=== PATIENT | male | born 1940 | race Caucasian/White ===

== ENCOUNTER 2023-04-08 06:31 | Emergency (ER) | payer MEDICARE, SELFPAY ==
[2023-04-08 06:38] VITALS: BP 145/82; PULSE 77; RESP 16; TEMP 36.7; O2SAT 98
--- NOTE | 2023-04-08 07:40 | ED.EPISTAXIS ---
HPI - Epistaxis General Chief complaint: Epistaxis Stated complaint: nose bleed Time Seen by Provider: 04/08/23 07:05 Source: patient, RN notes reviewed and old records reviewed Mode of arrival: ambulatory Limitations: no limitations History of Present Illness HPI Narrative: This is an 82 year old male who presents for evaluation of epistaxis. HE has been having recurrent nose bleeds from his right nostril since Sunday . He states this morning it started bleeding heavily at 6 am. He tried to stop the bleeding with tissue up his nose. He reports his nose started bleeding on Sunday with blowing his nose. HE denies previous history of with severe epistaxis. He denies taking any blood thinners. he states he felt like blood was runny down back of his throat. MD complaint: epistaxis Location: right nostril Onset (ago): day(s) (5) Duration: intermittent Treatment prior to arrival: stuffed nose with tissue Related Data Allergies Allergy/AdvReac Type Severity Reaction Status Date / Time No Known Allergies Allergy Verified 04/08/23 06:43 Review of Systems Review of Systems: All systems reviewed & are unremarkable except as noted in HPI and below Constitutional: Constitutional: Denies fatigue ENT: Denies dizziness, Reports epistaxis and Denies sore throat PMFSH Past Medical History Medical History (Updated 04/08/23 @ 09:00 by Bryanna Fan MD) Hyperlipidemia Social History Social History (Updated 04/08/23 @ 07:43 by Bryanna Fan MD) Smoking status: Never smoker Exam Const: General: no acute distress and alert Nutritional Appearance: well nourished Orientation/consciousness: patient oriented x3 Limitations: no limitations HENMT: Head: normal to inspection Ears: external ears normal Mouth: Yes lip normal and Yes moist mucous membranes Throat: uvula midline Other: dried blood around nares, no active bleeding Eyes: EOM: EOMs intact bilaterally Chest: Chest palpation & inspection: normal inspection of the chest Resp: Effort & Inspection: normal respiratory effort Auscultation: clear to auscultation bilaterally Cardio: Rate: regular rate Rhythm: regular rhythm Heart sounds: no murmurs Skin: General skin exam: normal color Neuro: General: patient oriented x3 and moves all extremities Psych: Mental Status: mental status grossly normal Affect: normal affect Attitude: cooperative Course Reevaluation(s) Reevaluation #1: Patient has not had any bleeding in ER for 2 hours. I did not see any area to cauterize. labs unremarkable. PAtient given afrin and he will get saline spray. [place] is from out of town so he will see ENT in [place] Date: 04/08/23 Time: 08:55 Vital Signs Vital signs: Vital Signs Temperature 98.1 F 04/08/23 06:38 Pulse Rate 77 04/08/23 06:38 Respiratory Rate 16 04/08/23 06:38 Blood Pressure 145/82 H 04/08/23 06:38 Pulse Oximetry 98 04/08/23 06:38 Oxygen Delivery Room Air 04/08/23 06:38 Temperature 98.1 F 04/08/23 06:38 Pulse Rate 92 04/08/23 08:16 Respiratory Rate 18 04/08/23 08:16 Blood Pressure 141/98 H 04/08/23 08:31 Pulse Oximetry 99 04/08/23 08:16 Oxygen Delivery Room Air 04/08/23 06:38 MDM - Epistaxis Differential Diagnosis Differential diagnosis: Likely anterior epistaxis and posterior epistaxis Lab Data Attestation: I reviewed the patient's lab results. 04/08/23 08:05 Labs: Lab Results 04/08/23 Range/Units 08:05 WBC 6.3 (4.5-10.0) K/mm3 RBC 4.59 L (4.6-6.20) M/mm3 Hgb 14.8 (14.0-18.0) g/dL Hct 43.6 (42.0-52.0) % MCV 95.0 (80-100) fl MCH 32.2 (26-34) pg MCHC 33.9 (32-36) g/dl RDW 12.7 (11.5-14.5) % Plt Count 207 (150-375) k/mm3 MPV 10.4 (7.4-10.4) fl Immature Gran % (Auto) 0.3 (0-0.5) % Neut % (Auto) 52.9 (45.5-73.1) % Lymph % (Auto) 30.5 (18.3-44.2) % [place] % (Auto) 11.4 H (2.6-8.5) % Eos % (Auto) 4.1 (0-4.4) % Baso % (Auto) 0.8
[2023-04-08 07:41] VITALS: BP 155/90; PULSE 76
[2023-04-08 08:01] VITALS: BP 155/93; PULSE 90; RESP 18; O2SAT 99
[2023-04-08 08:15] LABS: Basophils Absolute Auto 0.1 K/mm3 (0.0-0.1); Basophils Percent Auto 0.8 % (0.2-1.2); Eosinophils Absolute Auto 0.3 K/mm3 (0-0.3); Eosinophils Percent Auto 4.1 % (0-4.4); Hematocrit 43.6 % (42.0-52.0); Hemoglobin 14.8 g/dL (14.0-18.0); Immature Granulocyte Absolute 0.02 K/mm3 (0.00-0.031); Immature Granulocyte Percent A 0.3 % (0-0.5); Lymphocytes Absolute Auto 1.93 K/mm3 (0.9-3.2); Lymphocytes Percent Auto 30.5 % (18.3-44.2); Mean Corpuscular HGB Conc 33.9 g/dl (32-36); Mean Corpuscular Hemoglobin 32.2 pg (26-34); Mean Platelet Volume 10.4 fl (7.4-10.4); Monocytes Absolute Auto 0.7 K/mm3 (0.1-0.6); Monocytes Percent Auto 11.4 % (2.6-8.5); Neutrophils Absolute Auto 3.4 K/mm3 (1.3-6.7); Neutrophils Percent Auto 52.9 % (45.5-73.1); Platelet Count Result 207 k/mm3 (150-375); Red Blood Count 4.59 M/mm3 (4.6-6.20); Red Cell Distribution Width 12.7 % (11.5-14.5); White Blood Count 6.3 K/mm3 (4.5-10.0)
[2023-04-08] MEDS: OXYMETAZOLINE HCL 0.05% NAS 15 ML BTL (*BKC) 1 SPRAY NASAL (08:15)
[2023-04-08 08:16] VITALS: BP 155/97; PULSE 92; RESP 18; O2SAT 99
[2023-04-08 08:27] LABS: Partial Thromboplastin Time 27.1 SECONDS (22.3-36.8)
[2023-04-08 08:31] VITALS: BP 141/98
--- NOTE | 2023-04-08 08:46 | PC.NURSE ---
Nose clip removed. No active bleeding noted. Dr. Fan instructing pt to follow up with ENT once back home. Use saline nasal spray daily. Nasal clip given.
== END 2023-04-08 09:13 | disposition home or self-care (01) ==
PROVIDERS: Emergency Provider General Practice
DX: R04.0 Epistaxis (principal); E78.5 Hyperlipidemia, unspecified
CPT/HCPCS: 36415; 85025; 85610; 85730; 99283; A9270